=== PATIENT | male | born 1975 | race Caucasian/White ===

== ENCOUNTER 2025-03-28 02:30 | Emergency (ER) | payer OTHER ==
[2025-03-28] MEDS ORDERED: ONDANSETRON 4 MG/2 ML VIAL ONE (02:51)
[2025-03-28] MEDS ORDERED: KETOROLAC 30 MG/ML INJ ONE (02:52)
[2025-03-28] MEDS ORDERED: MORPHINE 4 MG/ML SYR ONE (02:52)
[2025-03-28 03:39] LABS: Absolute Lymphocytes (CBC) 2.3 K/uL (0.7-4.9); Hematocrit 41.1 % (39.6-49.0); Hemoglobin 14.0 g/dL (13.6-17.9); MCH 30.0 pg (27.0-35.0); MCHC 34.1 g/dL (32.0-36.0); MCV 88.0 fL (80-100); MPV 7.9 fL (7.6-11.3); Nucleated RBC Absolute Count 0.0 (0-0); Nucleated Red Blood Cells % 0.0 % (0-0); RBC Red Blood Cell Count 4.67 M/uL (4.33-5.43); White Blood Count 9.20 thou/uL (4.3-10.9)
[2025-03-28 03:49] LABS: ALT/SGPT 36.0 U/L (16-61); AST/SGOT 25.0 U/L (15-37); Albumin 3.5 g/dL (3.4-5.0); Albumin/Globulin Ratio 0.9 (1.1-1.8); Alkaline Phosphatase 51.0 U/L (45-117); Anion Gap 6.9 mEq/L (5.0-15.0); BUN Blood Urea Nitrogen 25.0 mg/dL (7-18); Globulin 3.8 g/dL (2.3-3.5); Glucose Level 111.0 mg/dL (74-106); Lipase 24.0 U/L (13-75); Potassium 3.9 mEq/L (3.5-5.1)
[2025-03-28 04:00] LABS: Urine Microscopic Reflex YN NO UMIC
--- NOTE | 2025-03-28 04:10 | EDPHYS ---
Physician Documentation [facility] Name: Antonio Tracey Age: 49 yrs Sex: Male : 1975 Arrival Date: 03/28/2025 Time: 02:30 Bed 5 Private MD: ED Physician Dl Adan HPI: 03/28 03:26 This 49 yrs old Male presents to ER via Ambulatory with complaints of Pain With tt7 Urination. 03:26 Onset: The symptoms/episode began/occurred 3 day(s) ago. Severity of symptoms: At their tt7 worst the symptoms were moderate in the emergency department the symptoms are unchanged. The patient has not experienced similar symptoms in the past. Pain is described as burning in character, no penile discharge, patient reports he is sexually active and monogamous, no testicular pain, he does report some pressure sensation in the suprapubic region, also states that when he sits down he feels some pressure in his perineum, he denies fever, nausea, vomiting, diarrhea. Past medical history includes hypertension. Historical: - Allergies: 02:57 No Known Allergies; jj7 - PMHx: 02:57 Hypertensive disorder; jj7 - PSHx: 02:57 LEFT SHOULDER; TIB/FIB FX; jj7 - Immunization history:: Adult Immunizations up to date. - Infectious Disease History:: Denies. - Social history:: Smoking status: Patient reports the use of cigarette tobacco products, cigars, Patient uses alcohol, occasionally. Patient/guardian denies using street drugs, IV drugs. ROS: 03:27 Constitutional: negative for fever. Cardiovascular: negative for chest pain. tt7 Respiratory: negative for shortness of breath. Abdomen/GI: negative for abdominal pain, nausea, vomiting, diarrhea. MS/Extremity: negative for injury and deformity. Skin: negative for rash. Neuro: negative for focal weakness. 03:27 : Positive for burning with urination, foul smelling urine, Negative for hematuria, bladder incontinence, penile discharge, penile pain, testicular pain Exam: 03:28 Constitutional: vital signs reviewed, well appearing. Head/Face: normocephalic, tt7 atraumatic. Eyes: no conjunctival injection, anicteric sclerae. ENT: mucus membranes moist. Neck: trachea midline, no JVD, no meningismus. Cardiovascular: regular rate and rhythm, no lower extremity edema. Respiratory: normal respiratory effort, no accessory muscle use Abdomen/GI: soft, nondistended, nontender, no guarding or rebound, negative Cantor's sign, no McBurney point tenderness. Back: normal ROM. Skin: warm, dry, intact, normal turgor, normal color, no rash. MS/ Extremity: normal ROM of extremities, no gross deformities. Neuro: alert and oriented with appropriate mental status, normal speech, follows commands, no focal neurologic deficits. Psych: appropriate mood and affect. Vital Signs: 02:35 BP 149 / 105; Pulse 71; Resp 18; Temp 97.9; Pulse Ox 100% ; Weight 83.91 kg; Height 5 jj7 ft. 10 in. ; Pain 6/10; 03:30 BP 146 / 98; Pulse 58; Resp 18; Pulse Ox 100% on R/A; kb4 04:00 BP 133 / 85; Pulse 70; Resp 18; Pulse Ox 100% on R/A; kb4 04:30 BP 142 / 81; Pulse 67; Resp 18; Pulse Ox 100% on R/A; kb4 02:35 Body Mass Index 26.54 (83.91 kg, 177.8 cm) jj7 02:35 Pain Scale: Adult jj7 MDM: 02:37 Medical Screening Exam initiated tt7 03:29 Differential Diagnosis Differential Diagnosis Acute cystitis, prostatitis, urethritis, tt7 acute urinary retention, acute renal failure, pancreatitis. Data reviewed: vital signs, nurses notes, lab test result(s). 03:30 ED course: Well-appearing 49-year-old male with dysuria, vital signs are stable, tt7 physical exam is reassuring, workup initiated to include laboratory studies and urinalysis. 04:21 ED course: Laboratory studies are reassuring, urinalysis consistent with acute cystitis tt7 given positive nitrite and leukocyte esterase, will treat the patient with 1 g of IV ceftriaxone here in the emergency department and discharged with course of cefpodoxime, after completion of the patient's emergency department evaluation, I do not suspect a life-threatening or disabling process. Patient is medically stable and not in need of emergent medical intervention. I had a detailed discussion with the patient regarding the historical points, exam findings, emergency department evaluation, diagnostic results, and the discharge diagnosis. I instructed the patient on outpatient management of their condition. I discussed the need for outpatient follow-up with a primary care physician. I informed the patient on return precautions, including the need to return to the ED if symptoms do not improve, worsen, or if there are any questions or concerns that arise at home. The patient was discharged in stable condition. 03/28 02:45 Order name: CBC with Diff; Complete Time: 03:44 tt7 03/28 02:45 Order name: CMP; Complete Time: 04:01 tt7 03/28 02:45 Order name: Lipase; Complete Time: 04:01 tt7 03/28 02:45 Order name: UA Rfx Shane Cult if indicated; Complete Time: 04:01 tt7 03/28 02:45 Order name: IV Saline Lock; Complete Time: 02:56 tt7 03/28 02:45 Order name: Labs collected and sent; Complete Time: 02:56 tt7 Administered Medications: 02:56 Not Given (Patient Refused): ondansetron 4 mg IVP once; over 2 minutes kb4 02:57 Not Given (Patient Refused): TORadol - [id number] mg IVP once kb4 02:57 Not Given (Patient Refused): morphineor iv 4 mg IVP once over 4 mins kb4 04:27 Drug: Rocephin IV 1 grams IV at bolus once; Given slow IV push per pharmacy kb4 instructions Route: IV; Rate: bolus; Site: right antecubital; 04:27 Follow up: Response: Medication administered at discharge. kb4 04:27 Follow up: IV Status: Completed infusion kb4 Disposition: 04:21 Co-signature as Attending Physician, Dl Adan DO. tt7 Disposition Summary: 03/28/25 04:09 Discharge Ordered Notes: Location: Home tt7 Problem: new tt7 Symptoms: have improved tt7 Condition: Stable tt7 Diagnosis - Acute cystitis tt7 Followup: tt7 - With: Emergency Department - When: As needed - Reason: Followup: tt7 - With: Private Physician - When: 2 - 3 days - Reason: Recheck today's complaints, Re-evaluation by your physician Discharge Instructions: - Form - Return To Work kb4 - Discharge Summary Sheet tt7 - Urinary Tract Infection, Adult, [id number] tt7 Forms: - Work release form kb4 - Medication Reconciliation Form tt7 - Antibiotic Education tt7 - Prescription Opioid Use tt7 - Patient Portal Instructions tt7 - Leadership Thank You Letter tt7 Prescriptions: - cefpodoxime 200 mg Oral tablet - take 1 tablet ORAL route every 12 hours for 10 days with food; 20 tablet; tt7 Refills: 0, Product Selection Permitted Signatures: Dispatcher [employer] EDMS Radha Zavala RN RN jj7 Perla Larson RN RN kb4 Dl Adan, DO tt7 Corrections: (The following items were deleted from the chart) 02:45 02:45 CBC+H.LAB.BRZ ordered. EDMS EDMS 02:45 02:45 COMPREHENSIVE METABOLIC PANEL+C.LAB.BRZ ordered. EDMS EDMS 02:45 02:45 LIPASE+C.LAB.BRZ ordered. EDMS EDMS 02:45 02:45 UA Rfx Shane Cult if indicated+U.LAB.BRZ ordered. EDMS EDMS 03:31 03:29 Differential Diagnosis Acute cystitis, prostatitis, urethritis, acute urinary tt7 retention, acute renal failure. tt7
--- NOTE | 2025-03-28 04:10 | ER ---
Nurse's Notes [facility] Name: Antonio Tracey Age: 49 yrs Sex: Male : 1975 Arrival Date: 03/28/2025 Time: 02:30 Bed 5 Private MD: Diagnosis: Acute cystitis Presentation: 03/28 02:35 Chief complaint: Patient states: BURNING WITH URINATION FOR A FEW DAYS, BUT GOT WORSE jj7 TONIGHT .FEELING PRESSURE IN HIS BLADDER. Coronavirus screen: At this time, the client does not indicate any symptoms associated with coronavirus-19. Ebola Screen: No symptoms or risks identified at this time. Initial Sepsis Screen: Does the patient meet any 2 criteria? No. Patient's initial sepsis screen is negative. Does the patient have a suspected source of infection? No. Patient's initial sepsis screen is negative. Risk Assessment: Do you want to hurt yourself or someone else? Patient reports no desire to harm self or others. Note TOOK TYLENOL 1GM REDEYE GUNNER. Onset of symptoms was March 28, 2025. 02:35 Method Of Arrival: Ambulatory [facility] 02:35 Acuity: SHAN 3 jj7 Triage Assessment: 02:35 General: Appears in no apparent distress. comfortable, Behavior is calm, cooperative, jj7 appropriate for age. Pain: Complains of pain in suprapubic area Pain currently is 6 out of 10 on a pain scale. EENT: No deficits noted. Neuro: No deficits noted. Cardiovascular: No deficits noted. Respiratory: No deficits noted. GI: No deficits noted. : Reports burning with urination, urgency. Derm: No deficits noted. Musculoskeletal: No deficits noted. Historical: - Allergies: 02:57 No Known Allergies; jj7 - PMHx: 02:57 Hypertensive disorder; jj7 - PSHx: 02:57 LEFT SHOULDER; TIB/FIB FX; jj7 - Immunization history:: Adult Immunizations up to date. - Infectious Disease History:: Denies. - Social history:: Smoking status: Patient reports the use of cigarette tobacco products, cigars, Patient uses alcohol, occasionally. Patient/guardian denies using street drugs, IV drugs. Screenin:30 [facility] ED Fall Risk Assessment (Adult) History of falling in the last 3 months, kb4 including since admission No falls in past 3 months (0 pts) Confusion or Disorientation No (0 pts) Intoxicated or Sedated No (0 pts) Impaired Gait No (0 pts) Mobility Assist Device Used No (0 pt) Altered Elimination No (0 pt) Score/Fall Risk Level 0 - 2 = Low Risk. Abuse screen: Denies threats or abuse. Denies injuries from another. Nutritional screening: No deficits noted. Tuberculosis screening: No symptoms or risk factors identified. Assessment: 04:00 Reassessment: No changes from previously documented assessment. Patient and/or family kb4 updated on plan of care and expected duration. Pain level reassessed. Patient is alert, oriented x 3, equal unlabored respirations, skin warm/dry/pink. General: Appears in no apparent distress. comfortable. Neuro: Level of Consciousness is awake, alert, obeys commands, Oriented to person, place, time, situation. Cardiovascular: Patient's skin is warm and dry. Respiratory: Airway is patent Respiratory effort is even, unlabored, Respiratory pattern is regular, symmetrical. GI: No signs and/or symptoms were reported involving the gastrointestinal system. : Reports pain with urination, urgency, urinary frequency. EENT: No signs and/or symptoms were reported regarding the EENT system. Derm: No signs and/or symptoms reported regarding the dermatologic system. Vital Signs: 02:35 BP 149 / 105; Pulse 71; Resp 18; Temp 97.9; Pulse Ox 100% ; Weight 83.91 kg; Height 5 jj7 ft. 10 in. ; Pain 6/10; 03:30 BP 146 / 98; Pulse 58; Resp 18; Pulse Ox 100% on R/A; kb4 04:00 BP 133 / 85; Pulse 70; Resp 18; Pulse Ox 100% on R/A; kb4 04:30 BP 142 / 81; Pulse 67; Resp 18; Pulse Ox 100% on R/A; kb4 02:35 Body Mass Index 26.54 (83.91 kg, 177.8 cm) jj7 02:35 Pain Scale: Adult jj7 ED Course: 02:33 Patient arrived in ED. lg3 02:35 Dl Adan DO is Attending Physician. tt7 02:35 Arm band placed on right wrist. Patient placed in an exam room, on a stretcher. jj7 02:36 Larson, Perla, RN is Primary Nurse. kb4 02:55 Triage completed. jj7 03:30 No provider procedures requiring assistance completed. Inserted saline lock: 20 gauge kb4 in right antecubital area, using aseptic technique. Blood collected. Flushed with 10 mL NS. 04:30 Patient has correct armband on for positive identification. Provided Education on: uti kb4 prevention . 04:31 IV discontinued, intact, bleeding controlled, No redness/swelling at site. Pressure kb4 dressing applied. Administered Medications: 02:56 Not Given (Patient Refused): ondansetron 4 mg IVP once; over 2 minutes kb4 02:57 Not Given (Patient Refused): TORadol - [id number] mg IVP once kb4 02:57 Not Given (Patient Refused): morphineor iv 4 mg IVP once over 4 mins kb4 04:27 Drug: Rocephin IV 1 grams IV at bolus once; Given slow IV push per pharmacy kb4 instructions Route: IV; Rate: bolus; Site: right antecubital; 04:27 Follow up: Response: Medication administered at discharge. kb4 04:27 Follow up: IV Status: Completed infusion kb4 Medication: 04:31 VIS not applicable for this client. kb4 Outcome: 04:09 Discharge ordered by . tt7 04:31 Discharged to home ambulatory, kb4 04:31 Condition: good 04:31 Discharge instructions given to patient, Instructed on discharge instructions, follow up and referral plans. medication usage, Demonstrated understanding of instructions, follow-up care, medications, Prescriptions given X 1, 04:32 Patient left the ED. kb4 Signatures: Katie Hernadez RN RN lg3 Radha Zavala RN RN jj7 Perla Larson RN RN kb4 Dl Adan, DO tt7
[2025-03-28] MEDS ORDERED: CEFTRIAXONE 1000 MG/VIAL ONE (04:16)
[2025-03-28 04:36] VITALS: TEMP 97.9; O2SAT 100
[2025-03-28 04:41] VITALS: BP 142/81
== END 2025-03-28 04:32 | disposition home or self-care (01) ==
LOC: ER 02:30
DX: N30.00 Acute cystitis without hematuria (principal)
CPT/HCPCS: 85025; 36415; 81003; 83690; 80053; 96374; 99284; J0696; J1885; J2405